=== PATIENT | female | born 1945 | race Caucasian/White ===

== ENCOUNTER 2018-11-19 09:59 | Outpatient (CLI) | payer BC, MEDICARE | END 2018-11-19 23:59 | disposition home or self-care (01) | LOC: STAR 09:59 | PROVIDERS: ATTEND Specialist | DX: Z01.818 Encounter for other preprocedural examination (principal); C54.1 Malignant neoplasm of endometrium; I48.91 Unspecified atrial fibrillation | CPT/HCPCS: 36415; 71046; 80053; 85025; 85610; 85730; 93005 ==